=== PATIENT | female | born 1995 | race Two or more races ===

== ENCOUNTER 2021-07-30 09:42 | Observation (INO) | payer BC, MEDICAID ==
[2021-07-30] MEDS ORDERED: PREN-96 PO (11:37)
== END 2021-07-30 11:45 | disposition home or self-care (01) ==
LOC: LDRP 09:42
PROVIDERS: ADMIT Obstetrics & Gynecology; ATTEND Obstetrics & Gynecology
DX: O24.419 Gestational diabetes mellitus in pregnancy, unspecified control (principal); Z3A.31 31 weeks gestation of pregnancy
CPT/HCPCS: 59025; 81002; 82948; 82962; 94760; G0378; G0379

== ENCOUNTER 2021-08-06 08:15 | Observation (INO) | payer BC, MEDICAID ==
[~2021-08-06 08:15] MED LIST: PREN-96 PO
== END 2021-08-06 09:32 | disposition home or self-care (01) ==
LOC: LDRP 08:15
PROVIDERS: ADMIT Obstetrics & Gynecology; ATTEND Obstetrics & Gynecology
DX: O24.419 Gestational diabetes mellitus in pregnancy, unspecified control (principal); Z3A.32 32 weeks gestation of pregnancy; Z79.899 Other long term (current) drug therapy; Z98.890 Other specified postprocedural states
CPT/HCPCS: 59025; 76818; 81002; 82948; 82962; G0378; G0379

== ENCOUNTER 2021-08-12 07:22 | Observation (INO) | payer BC, MEDICAID | END 2021-08-12 14:20 | disposition home or self-care (01) | LOC: LDRP 13:15 | PROVIDERS: ADMIT Obstetrics & Gynecology; ATTEND Obstetrics & Gynecology | DX: O24.419 Gestational diabetes mellitus in pregnancy, unspecified control (principal); Z3A.33 33 weeks gestation of pregnancy | CPT/HCPCS: 59025; 76818; 81002; 82962; G0378; G0379 ==

== ENCOUNTER 2021-08-26 07:51 | Observation (INO) | payer BC, MEDICAID ==
[2021-08-26 12:36] LABS: Urine Bacteria FEW /hpf (None Seen); Urine Blood TRACE /uL (Negative); Urine Hyaline Cast FEW /lpf (0 - 2); Urine Mucus FEW (None Seen); Urine Specific Gravity 1.025 (1.001-1.035); Urine WBC 48 /hpf (0 - 5)
[2021-08-26 12:42] LABS: Basophils # (auto) 0 10 ^3/uL (0-0.2); Basophils % (auto) 0.3 % (0.0-2.0); Eosinophils # (auto) 0.1 10 ^3/uL (0-0.8); Eosinophils % (auto) 1.3 % (0.0-7.0); Hematocrit 34.9 % (36.0-46.0); Hemoglobin 11.6 g/dL (12.2-16.2); Lymphocytes # (auto) 1.4 10 ^3/uL (0.4-5.4); Lymphocytes % (auto) 19.3 % (10.0-50.0); Mean Corpuscular Hemoglobin 28.6 pg (28.0-32.0); Mean Corpuscular Hgb Conc. 33.1 g/dL (32.0-36.0); Mean Corpuscular Volume 86.4 fL (80.0-100.0); Monocytes # (auto) 0.7 10 ^3/uL (0-1.3); Monocytes % (auto) 8.8 % (0.0-12.0); Neutrophils # (auto) 5.2 10 ^3/uL (1.6-8.6); Neutrophils % (auto) 70.3 % (37.0-80.0); Nucleated Red Blood Cells % 0.1 %; Red Blood Cells 4.04 10^6/uL (4.0-5.20); Red Cell Distribution Width 13.8 % (11.8-14.3); White Blood Cell 7.5 10^3/uL (4.4-10.8)
[2021-08-26 12:45] LABS: Albumin 2.6 g/dL (3.4-5.0); INR 0.95 (0.9-1.15); Partial Thromboplastin Time 28.6 sec (23.6-33.0); Potassium 3.8 mmol/L (3.5-5.1); Uric Acid 2.8 mg/dL (2.6-6.0)
[2021-08-26 12:48] LABS: BUN/Creatinine Ratio 10.2; Bilirubin, Total 0.3 mg/dL (0.2-1.0); Total Protein 6.7 g/dL (6.4-8.2)
[2021-08-26 14:42] LABS: Protein, Urine 39.2 mg/dL (0.0-11.9)
[2021-08-27 07:07] LABS: RPR Non Reactive (Non Reactive)
== END 2021-08-26 14:00 | disposition home or self-care (01) ==
LOC: LDRP 10:29
PROVIDERS: ADMIT Obstetrics & Gynecology; ATTEND Obstetrics & Gynecology
DX: O24.419 Gestational diabetes mellitus in pregnancy, unspecified control (principal); O13.3 Gestational [pregnancy-induced] hypertension without significant proteinuria, third trimester; Z3A.35 35 weeks gestation of pregnancy; Z98.891 History of uterine scar from previous surgery
CPT/HCPCS: 36415; 59025; 76818; 80053; 81001; 81002; 82570; 84156; 84550; 85025; 85610; 85730; 86592; 94760; G0378; G0379

== ENCOUNTER 2021-09-02 08:27 | Observation (INO) | payer BC, MEDICAID ==
[2021-09-02] MEDS ORDERED: METF-370 PO (13:36)
== END 2021-09-02 13:45 | disposition home or self-care (01) ==
LOC: LDRP 11:38
PROVIDERS: ADMIT Obstetrics & Gynecology; ATTEND Obstetrics & Gynecology
DX: O24.419 Gestational diabetes mellitus in pregnancy, unspecified control (principal); Z3A.36 36 weeks gestation of pregnancy
CPT/HCPCS: 59025; 76818; 81002; 82948; 82962; G0378; G0379

== ENCOUNTER 2021-09-09 10:15 | Observation (INO) | payer BC, MEDICAID ==
[~2021-09-09 10:15] MED LIST changes: +METF-370 PO
[2021-09-09 12:34] LABS: Basophils # (auto) 0 10 ^3/uL (0-0.2); Basophils % (auto) 0.5 % (0.0-2.0); Eosinophils # (auto) 0 10 ^3/uL (0-0.8); Eosinophils % (auto) 0.1 % (0.0-7.0); Hematocrit 36.1 % (36.0-46.0); Lymphocytes # (auto) 0.9 10 ^3/uL (0.4-5.4); Lymphocytes % (auto) 12.9 % (10.0-50.0); Mean Corpuscular Hemoglobin 28.1 pg (28.0-32.0); Mean Corpuscular Hgb Conc. 33.3 g/dL (32.0-36.0); Mean Corpuscular Volume 84.3 fL (80.0-100.0); Monocytes # (auto) 0.5 10 ^3/uL (0-1.3); Monocytes % (auto) 7.6 % (0.0-12.0); Neutrophils # (auto) 5.3 10 ^3/uL (1.6-8.6); Neutrophils % (auto) 78.9 % (37.0-80.0); Nucleated Red Blood Cells % 0.1 %; Red Blood Cells 4.28 10^6/uL (4.0-5.20); Red Cell Distribution Width 13.8 % (11.8-14.3); White Blood Cell 6.8 10^3/uL (4.4-10.8)
[2021-09-09 12:37] LABS: Urine Bacteria FEW /hpf (None Seen); Urine Blood Negative /uL (Negative); Urine Mucus FEW (None Seen); Urine Specific Gravity 1.029 (1.001-1.035); Urine WBC 55 /hpf (0 - 5)
[2021-09-09 12:39] LABS: Protein, Urine 104.8 mg/dL (0.0-11.9)
[2021-09-09 12:46] LABS: INR 0.99 (0.9-1.15); Partial Thromboplastin Time 29.4 sec (23.6-33.0)
[2021-09-09 12:51] LABS: Albumin 2.7 g/dL (3.4-5.0); Calcium 8.1 mg/dL (8.5-10.1); Potassium 3.5 mmol/L (3.5-5.1); Uric Acid 3.4 mg/dL (2.6-6.0)
[2021-09-09 12:54] LABS: Bilirubin, Total 0.4 mg/dL (0.2-1.0); Total Protein 6.5 g/dL (6.4-8.2)
== END 2021-09-09 12:52 | disposition home or self-care (01) ==
LOC: LDRP 10:15
PROVIDERS: ADMIT Obstetrics & Gynecology; ATTEND Obstetrics & Gynecology
DX: O24.415 Gestational diabetes mellitus in pregnancy, controlled by oral hypoglycemic drugs (principal); Z3A.37 37 weeks gestation of pregnancy; Z79.899 Other long term (current) drug therapy
CPT/HCPCS: 36415; 59025; 76818; 80053; 81001; 81002; 82570; 82948; 82962; 84156; 84550; 85025; 85610; 85730; 94760; G0378

== ENCOUNTER 2021-09-11 18:49 | Observation (INO) | payer BC, MEDICAID ==
[~2021-09-11] VITALS: Ht 152.4 cm; Wt 91.6 kg
[2021-09-11 20:11] LABS: Basophils # (auto) 0 10 ^3/uL (0-0.2); Basophils % (auto) 0.1 % (0.0-2.0); Eosinophils # (auto) 0.1 10 ^3/uL (0-0.8); Eosinophils % (auto) 1.2 % (0.0-7.0); Hematocrit 32.8 % (36.0-46.0); Lymphocytes # (auto) 1.7 10 ^3/uL (0.4-5.4); Lymphocytes % (auto) 24.9 % (10.0-50.0); Mean Corpuscular Hemoglobin 28.1 pg (28.0-32.0); Mean Corpuscular Hgb Conc. 33.6 g/dL (32.0-36.0); Mean Corpuscular Volume 83.6 fL (80.0-100.0); Monocytes # (auto) 0.6 10 ^3/uL (0-1.3); Monocytes % (auto) 9.5 % (0.0-12.0); Neutrophils # (auto) 4.3 10 ^3/uL (1.6-8.6); Neutrophils % (auto) 64.3 % (37.0-80.0); Nucleated Red Blood Cells % 0.1 %; Red Blood Cells 3.93 10^6/uL (4.0-5.20); Red Cell Distribution Width 13.7 % (11.8-14.3); White Blood Cell 6.7 10^3/uL (4.4-10.8)
[2021-09-11 20:31] LABS: INR 0.96 (0.9-1.15); Partial Thromboplastin Time 27.3 sec (23.6-33.0)
[2021-09-11 20:34] LABS: Albumin 2.5 g/dL (3.4-5.0); Calcium 7.8 mg/dL (8.5-10.1); Potassium 3.3 mmol/L (3.5-5.1)
[2021-09-11 20:38] LABS: BUN/Creatinine Ratio 13.5; Bilirubin, Total 0.3 mg/dL (0.2-1.0)
[2021-09-11 21:16] LABS: Urine Bacteria FEW /hpf (None Seen); Urine Blood Negative /uL (Negative); Urine Specific Gravity 1.016 (1.001-1.035); Urine WBC 2 /hpf (0 - 5)
[2021-09-11 21:27] LABS: Alcohol, Urine < 3.0 mg/dL (0-10); Amphetamine Screen, Urine NEGATIVE (NEGATIVE); Barbiturate Scree,Urine NEGATIVE (NEGATIVE); Benzodiazephine Screen, Urine NEGATIVE (NEGATIVE); Cannabinoid Screen, Urine NEGATIVE (NEGATIVE); Cocaine Screen, Urine NEGATIVE (NEGATIVE); Creatinine, Urine 106 mg/dL (30.0-125.0); Opiate Scree,Urine NEGATIVE (NEGATIVE); Phencyclidine Screen, Urine NEGATIVE (NEGATIVE); Protein, Urine 22.6 mg/dL (0.0-11.9)
== END 2021-09-11 22:01 | disposition home or self-care (01) ==
LOC: LDRP 18:49
PROVIDERS: ADMIT Obstetrics & Gynecology; ATTEND Obstetrics & Gynecology
DX: O13.3 Gestational [pregnancy-induced] hypertension without significant proteinuria, third trimester (principal); O24.419 Gestational diabetes mellitus in pregnancy, unspecified control; O99.891 Other specified diseases and conditions complicating pregnancy; M54.9 Dorsalgia, unspecified; Z3A.37 37 weeks gestation of pregnancy; Z98.891 History of uterine scar from previous surgery; Z79.899 Other long term (current) drug therapy
CPT/HCPCS: 36415; 59025; 76818; 80053; 80307; 81001; 81002; 82570; 82962; 83615; 84156; 84550; 85025; 85362; 85379; 85384; 85610; 85730; 94760; G0378

== ENCOUNTER 2021-09-16 08:27 | Observation (INO) | payer BC, MEDICAID ==
[2021-09-16 10:13] LABS: Basophils # (auto) 0 10 ^3/uL (0-0.2); Basophils % (auto) 0.2 % (0.0-2.0); Eosinophils # (auto) 0.1 10 ^3/uL (0-0.8); Eosinophils % (auto) 0.9 % (0.0-7.0); Hematocrit 34.1 % (36.0-46.0); Hemoglobin 11.4 g/dL (12.2-16.2); Lymphocytes % (auto) 26.3 % (10.0-50.0); Mean Corpuscular Hemoglobin 27.8 pg (28.0-32.0); Mean Corpuscular Hgb Conc. 33.3 g/dL (32.0-36.0); Mean Corpuscular Volume 83.7 fL (80.0-100.0); Monocytes # (auto) 0.5 10 ^3/uL (0-1.3); Neutrophils # (auto) 5.2 10 ^3/uL (1.6-8.6); Neutrophils % (auto) 66.6 % (37.0-80.0); Nucleated Red Blood Cells % 0.1 %; Red Blood Cells 4.08 10^6/uL (4.0-5.20); Red Cell Distribution Width 13.6 % (11.8-14.3); White Blood Cell 7.8 10^3/uL (4.4-10.8)
[2021-09-16 10:32] LABS: INR 0.94 (0.9-1.15); Partial Thromboplastin Time 27.4 sec (23.6-33.0)
[2021-09-16 11:03] LABS: Urine Bacteria FEW /hpf (None Seen); Urine Blood Negative /uL (Negative); Urine WBC 31 /hpf (0 - 5)
[2021-09-16 11:23] LABS: Albumin 2.7 g/dL (3.4-5.0); BUN/Creatinine Ratio 10.2; Bilirubin, Total 0.3 mg/dL (0.2-1.0); Calcium 8.1 mg/dL (8.5-10.1); Potassium 3.7 mmol/L (3.5-5.1); Total Protein 6.5 g/dL (6.4-8.2)
[2021-09-16 11:40] LABS: Alcohol, Urine < 3.0 mg/dL (0-10); Amphetamine Screen, Urine NEGATIVE (NEGATIVE); Barbiturate Scree,Urine NEGATIVE (NEGATIVE); Benzodiazephine Screen, Urine NEGATIVE (NEGATIVE); Cannabinoid Screen, Urine NEGATIVE (NEGATIVE); Cocaine Screen, Urine NEGATIVE (NEGATIVE); Opiate Scree,Urine NEGATIVE (NEGATIVE); Phencyclidine Screen, Urine NEGATIVE (NEGATIVE)
[2021-09-16 11:44] LABS: Protein, Urine 15.4 mg/dL (0.0-11.9)
[2021-09-17 06:06] LABS: RPR Non Reactive (Non Reactive)
== END 2021-09-16 12:23 | disposition home or self-care (01) ==
LOC: LDRP 09:26
PROVIDERS: ADMIT Obstetrics & Gynecology; ATTEND Obstetrics & Gynecology
DX: O24.419 Gestational diabetes mellitus in pregnancy, unspecified control (principal); O62.9 Abnormality of forces of labor, unspecified; O13.3 Gestational [pregnancy-induced] hypertension without significant proteinuria, third trimester; Z20.822 Contact with and (suspected) exposure to COVID-19; Z79.899 Other long term (current) drug therapy; Z3A.38 38 weeks gestation of pregnancy
CPT/HCPCS: 36415; 59025; 76818; 80053; 80307; 81001; 81002; 82570; 82948; 82962; 84156; 84550; 85025; 85362; 85379; 85610; 85730; 86592; 86850; 86900; 86901; 87426; 94760; G0378; U0003

== ENCOUNTER 2021-09-20 04:49 | Inpatient (IN) | payer BC, MEDICAID ==
[2021-09-19 10:17] LABS: Albumin 2.7 g/dL (3.4-5.0); Calcium 8.4 mg/dL (8.5-10.1)
[2021-09-19 10:20] LABS: BUN/Creatinine Ratio 15.4; Bilirubin, Total 0.3 mg/dL (0.2-1.0); Total Protein 6.6 g/dL (6.4-8.2)
[2021-09-19 10:30] LABS: Basophils # (auto) 0 10 ^3/uL (0-0.2); Basophils % (auto) 0.3 % (0.0-2.0); Eosinophils # (auto) 0.1 10 ^3/uL (0-0.8); Eosinophils % (auto) 0.9 % (0.0-7.0); Hematocrit 35.2 % (36.0-46.0); Hemoglobin 11.5 g/dL (12.2-16.2); Lymphocytes # (auto) 2.1 10 ^3/uL (0.4-5.4); Lymphocytes % (auto) 19.3 % (10.0-50.0); Mean Corpuscular Hemoglobin 27.9 pg (28.0-32.0); Mean Corpuscular Hgb Conc. 32.7 g/dL (32.0-36.0); Mean Corpuscular Volume 85.4 fL (80.0-100.0); Monocytes # (auto) 0.7 10 ^3/uL (0-1.3); Monocytes % (auto) 6.9 % (0.0-12.0); Neutrophils # (auto) 7.8 10 ^3/uL (1.6-8.6); Neutrophils % (auto) 72.6 % (37.0-80.0); Red Blood Cells 4.12 10^6/uL (4.0-5.20); Red Cell Distribution Width 14.1 % (11.8-14.3); White Blood Cell 10.8 10^3/uL (4.4-10.8)
[2021-09-19 10:50] LABS: INR 0.92 (0.9-1.15); Partial Thromboplastin Time 25.6 sec (23.6-33.0)
[~2021-09-20] VITALS: Ht 152.4 cm; Wt 91.6 kg
[2021-09-20] VITALS (16 sets, daily range): BP systolic 95–141; BP diastolic 51–71
[2021-09-20] MEDS ORDERED: LACTATED RINGER'S 1,000 ML IV SCH (05:15)
[2021-09-20] MEDS ORDERED: LACTATED RINGER'S 1,000 ML IV ONE (05:15)
[2021-09-20] MEDS ORDERED: ceFAZolin 1GM/50ML 50 ML IV ONE (05:15)
[2021-09-20] MEDS ORDERED: METOCLOPRAMIDE HCL 5MG/ml INJ 2ml VIAL IV ONE (05:15)
[2021-09-20] MEDS ORDERED: SODIUM CITR/CITRIC ACID ORAL SOLN 30 ML PO ONE (05:15)
[2021-09-20] MEDS ORDERED: TETRACAINE 1% INJ 2 ML VIAL IJ ONE (07:13)
[2021-09-20] MEDS ORDERED: fentaNYL CITRATE 100 MCG/2 ML VL ONE (07:47)
[2021-09-20] MEDS ORDERED: ONDANSETRON HCL 4 MG/2 ML VIAL ONE (07:48)
[2021-09-20] MEDS ORDERED: GLYCOPYRROLATE 0.2 MG/ML 1ML VIAL ONE (07:48)
[2021-09-20] MEDS ORDERED: ePHEDrine SULFATE 50 MG/ML AMP ONE (07:48)
[2021-09-20] MEDS ORDERED: PHENYLEPHRINE HCL 10 MG/ML VL ONE (07:48)
[2021-09-20] MEDS ORDERED: oxyTOCIN 10 UNIT/ML 10ML VIAL ONE (07:48)
[2021-09-20] MEDS ORDERED: MORPHINE SULF PF 2 MG/2 ML SYRG ONE (07:48)
[2021-09-20] MEDS ORDERED: BUPIVACAINE/DEXTROSE MPF 0.75% 2 ML AMP IT ONE (07:48)
[2021-09-20] MEDS ORDERED: SUCCINYLCHOLINE CHLORIDE 20 MG/ML 10ML VIAL IV ONE (07:49)
[2021-09-20] MEDS ORDERED: ONDANSETRON HCL 4 MG/2 ML VIAL IV PRN ×4 (09:15→12:00)
[2021-09-20] MEDS ORDERED: ceFAZolin 1GM/50ML 50 ML IV SCH (09:15)
[2021-09-20] MEDS ORDERED: LACT. RINGERS/OXYTOCIN 20UNITS 1,000 ML IV ONE (09:15)
[2021-09-20] MEDS ORDERED: ACETAMINOPHEN IV 1000 MG/100ML (10MG/ML) IV PRN (10:00)
[2021-09-20] MEDS ORDERED: GUM (CHEWING) 1 GUM CHEW CHEW ONE (10:00)
[2021-09-20] MEDS ORDERED: IBUP800T27 PO (11:40)
[2021-09-20] MEDS ORDERED: DOCU-94 PO (11:40)
[2021-09-20] MEDS ORDERED: HYDR-4902 PO (11:40)
[2021-09-20] MEDS ORDERED: DexAMETHasone SOD PHOS 10MG/1ML VIAL INJ IV PRN (12:00)
[2021-09-20] MEDS ORDERED: KETOROLAC TROMETH 30 MG/ML 1ML VIAL IV PRN ×2 (12:00→16:15)
[2021-09-20] MEDS ORDERED: NALOXONE HCL 0.4 MG/ML VIAL IV PRN (12:00)
[2021-09-20] MEDS ORDERED: diphenhdrAMINE HCL 50 MG/1 ML VL IV PRN (12:00)
[2021-09-20] MEDS ORDERED: KETOROLAC TROMETH 30 MG/ML 1ML VIAL IV ONE (12:00)
[2021-09-20] MEDS: ceFAZolin 1GM/50ML 50 ML IV SCH ×2 (14:53→23:06)
[2021-09-20] MEDS: LACTATED RINGER'S 1,000 ML IV SCH ×2 (18:00→23:05)
[2021-09-20 21:39] LABS: Basophils # (auto) 0 10 ^3/uL (0-0.2); Basophils % (auto) 0.2 % (0.0-2.0); Eosinophils # (auto) 0 10 ^3/uL (0-0.8); Eosinophils % (auto) 0.4 % (0.0-7.0); Hematocrit 33.7 % (36.0-46.0); Hemoglobin 11.3 g/dL (12.2-16.2); Lymphocytes # (auto) 1.7 10 ^3/uL (0.4-5.4); Lymphocytes % (auto) 16.7 % (10.0-50.0); Mean Corpuscular Hemoglobin 28.1 pg (28.0-32.0); Mean Corpuscular Hgb Conc. 33.4 g/dL (32.0-36.0); Mean Corpuscular Volume 84.1 fL (80.0-100.0); Monocytes % (auto) 9.9 % (0.0-12.0); Neutrophils # (auto) 7.4 10 ^3/uL (1.6-8.6); Neutrophils % (auto) 72.8 % (37.0-80.0); Red Blood Cells 4.01 10^6/uL (4.0-5.20); White Blood Cell 10.2 10^3/uL (4.4-10.8)
[2021-09-20] MEDS: FAMOTIDINE (10MG/ML) 2ML VL IV SCH (22:00)
[2021-09-21] VITALS (15 sets, daily range): BP systolic 88–113; BP diastolic 44–75
[2021-09-21 06:10] LABS: Basophils # (auto) 0 10 ^3/uL (0-0.2); Basophils % (auto) 0.3 % (0.0-2.0); Eosinophils # (auto) 0.1 10 ^3/uL (0-0.8); Eosinophils % (auto) 0.8 % (0.0-7.0); Hematocrit 32.6 % (36.0-46.0); Hemoglobin 10.9 g/dL (12.2-16.2); Lymphocytes # (auto) 1.5 10 ^3/uL (0.4-5.4); Lymphocytes % (auto) 16.3 % (10.0-50.0); Mean Corpuscular Hemoglobin 28.1 pg (28.0-32.0); Mean Corpuscular Hgb Conc. 33.5 g/dL (32.0-36.0); Mean Corpuscular Volume 83.9 fL (80.0-100.0); Monocytes % (auto) 10.5 % (0.0-12.0); Neutrophils # (auto) 6.7 10 ^3/uL (1.6-8.6); Neutrophils % (auto) 72.1 % (37.0-80.0); Nucleated Red Blood Cells % 0.1 %; Red Blood Cells 3.88 10^6/uL (4.0-5.20); White Blood Cell 9.3 10^3/uL (4.4-10.8)
[2021-09-21] MEDS: ceFAZolin 1GM/50ML 50 ML IV SCH (07:37)
[2021-09-21] MEDS ORDERED: BISACODYL 10 MG RECT SUPP PR PRN (10:30)
[2021-09-21] MEDS ORDERED: HYDROcodone-ACET 5/325MG TAB PO PRN (10:30)
[2021-09-21] MEDS: SIMETHICONE 80 MG CHEWABLE TABLET PO SCH ×3 (12:35→22:24)
[2021-09-21] MEDS: HYDROcodone-ACET 5/325MG TAB PO PRN ×2 (12:37→22:26)
[2021-09-21] MEDS: IBUPROFEN 800 MG TAB PO PRN (16:26)
[2021-09-21] MEDS: FAMOTIDINE (10MG/ML) 2ML VL IV SCH (22:00)
[2021-09-21] MEDS: DOCUSATE SOD 100 MG CAP PO SCH (22:25)
[2021-09-22 03:00] VITALS: BP 108/67
[2021-09-22] MEDS: SIMETHICONE 80 MG CHEWABLE TABLET PO SCH ×2 (05:33→11:20)
[2021-09-22] MEDS: HYDROcodone-ACET 5/325MG TAB PO PRN (05:34)
[2021-09-22 07:10] VITALS: BP 108/58
[2021-09-22] MEDS ORDERED: DOCUSATE CALCIUM 240 MG CAP PO SCH (10:00)
[2021-09-22 11:16] VITALS: BP 104/65
[2021-09-22] MEDS: IBUPROFEN 800 MG TAB PO PRN (11:20)
[2021-09-22] MEDS: DOCUSATE SOD 100 MG CAP PO SCH (11:21)
[2021-09-22] MEDS ORDERED: MEASLES, MUMPS & RUBELLA VAC(MMRII) 0.5ML SC ONE (13:00)
== END 2021-09-22 14:16 | disposition home or self-care (01) | DRG 786 ==
LOC: LDRP 04:49
PROVIDERS: ADMIT Obstetrics & Gynecology; ATTEND Obstetrics & Gynecology
PROC: 10D00Z1 Extraction of Products of Conception, Low, Open Approach (ICD-10-PCS; principal; 2021-09-20 08:04)
DX: O24.429 Gestational diabetes mellitus in childbirth, unspecified control (principal); U07.1 COVID-19; O98.52 Other viral diseases complicating childbirth; O34.211 Maternal care for low transverse scar from previous cesarean delivery; Z3A.39 39 weeks gestation of pregnancy; Z37.0 Single live birth
CPT/HCPCS: 36415; 59025; 80053; 82947; 82948; 82962; 85025; 85610; 85730; 86850; 86900; 86901; 94760; 94762; 96360; 96361; 96365; 96366; G0378; J0131; J0330; J0690; J1885; J2405; J2590

== ENCOUNTER 2024-01-29 11:13 | Observation (INO) | payer MEDICAID ==
[~2024-01-29 11:13] MED LIST changes: +DOCU-94 PO; +HYDR-4902 PO; +IBUP-1456 PO
== END 2024-01-29 12:44 | disposition home or self-care (01) ==
LOC: LDRP 11:13
PROVIDERS: ADMIT Obstetrics & Gynecology; ATTEND Obstetrics & Gynecology
DX: O24.419 Gestational diabetes mellitus in pregnancy, unspecified control (principal); Z3A.36 36 weeks gestation of pregnancy
CPT/HCPCS: 59025; 76818; 81002; 82948; 82962; 94760; G0378

== ENCOUNTER 2024-02-03 09:19 | Observation (INO) | payer MEDICAID | END 2024-02-03 11:42 | disposition home or self-care (01) | LOC: LDRP 10:28 → UNDOADMOB 10:28 → LDRP 10:32 → UNDODISOB 11:42 | PROVIDERS: ADMIT Obstetrics & Gynecology; ATTEND Obstetrics & Gynecology | DX: O24.419 Gestational diabetes mellitus in pregnancy, unspecified control (principal); Z3A.36 36 weeks gestation of pregnancy | CPT/HCPCS: 59025; 76818; 81002; 82962; 94760; G0378 ==

== ENCOUNTER 2024-02-11 10:12 | Observation (INO) | payer MEDICAID | END 2024-02-11 11:36 | disposition home or self-care (01) | LOC: UNDOADMOB 10:12 → LDRP 10:12 → UNDODISOB 11:36 | PROVIDERS: ADMIT Obstetrics & Gynecology; ATTEND Obstetrics & Gynecology | DX: O24.419 Gestational diabetes mellitus in pregnancy, unspecified control (principal); O62.9 Abnormality of forces of labor, unspecified; Z3A.37 37 weeks gestation of pregnancy | CPT/HCPCS: 59025; 76818; 81002; 82948; 94760; G0378 ==

== ENCOUNTER 2024-02-14 08:40 | Observation (INO) | payer MEDICAID | END 2024-02-14 18:12 | disposition home or self-care (01) | LOC: LDRP 17:07 | PROVIDERS: ADMIT Obstetrics & Gynecology; ATTEND Obstetrics & Gynecology | DX: O24.419 Gestational diabetes mellitus in pregnancy, unspecified control (principal); Z3A.38 38 weeks gestation of pregnancy | CPT/HCPCS: 76818; 82962; G0378; 59025; 81002; 82948; 94760 ==

== ENCOUNTER 2024-02-18 08:48 | Observation (INO) | payer MEDICAID ==
[~2024-02-18 08:48] MED LIST changes: -METF-370 PO
[2024-02-18 10:12] LABS: Basophils # (auto) 0 10 ^3/uL (0-0.2); Basophils % (auto) 0.2 % (0.0-2.0); Eosinophils # (auto) 0.1 10 ^3/uL (0-0.8); Mean Corpuscular Volume 78.6 fL (80.0-100.0); Monocytes # (auto) 0.5 10 ^3/uL (0-1.3); Nucleated Red Blood Cells % 0.1 %; Red Cell Distribution Width 15.9 % (11.8-14.3)
[2024-02-18 10:13] LABS: Eosinophils % (auto) 0.9 % (0.0-7.0); Hematocrit 34.3 % (36.0-46.0); Lymphocytes % (auto) 22.2 % (10.0-50.0); Mean Corpuscular Hemoglobin 25.2 pg (28.0-32.0); Monocytes % (auto) 5.8 % (0.0-12.0); Neutrophils # (auto) 6.4 10 ^3/uL (1.6-8.6); Neutrophils % (auto) 70.9 % (37.0-80.0); Red Blood Cells 4.36 10^6/uL (4.0-5.20)
[2024-02-18 10:24] LABS: Albumin 4.1 g/dL (3.2-4.8); Alkaline Phosphatase 134 U/L (46-116); Anion Gap 8 (5-15); Aspartate Aminotransferase < 8 U/L (13-40); BUN/Creatinine Ratio 10.6 (10.0-20.0); Blood Urea Nitrogen 5 mg/dL (9-23); Calcium 8.7 mg/dL (8.5-10.1); Carbon Dioxide 20 mmol/L (20-30); Chloride 108 mmol/L (98-107); Glucose 92 mg/dL (74-106); Potassium 3.5 mmol/L (3.5-5.1); Sodium 136 mmol/L (136-145)
[2024-02-18 10:25] LABS: Alanine Aminotransferase < 9 U/L (7-40); Bilirubin, Total 0.3 mg/dL (0.2-1.0); Total Protein 6.6 g/dL (5.7-8.2)
[2024-02-18 10:27] LABS: INR 0.93 (0.9-1.15); Partial Thromboplastin Time 26.7 SEC (24.5-34.5); Prothrombin Time 9.9 sec (9.3-11.8)
[2024-02-18 10:37] LABS: Urine Bacteria FEW /hpf (None Seen); Urine Blood Negative /uL (Negative); Urine Budding Yeast OCCASIONAL /hpf (None Seen); Urine Color Yellow (Yellow); Urine Mucus FEW (None Seen); Urine Protein, UAD 1+ (Negative); Urine Specific Gravity 1.026 (1.001-1.035); Urine Urobilinogen Normal (Negative); Urine WBC 6 /hpf (0 - 5)
[2024-02-18 10:38] LABS: Urine Clarity Hazy (Clear)
[2024-02-18 10:45] LABS: Amphetamine Screen, Urine Neg (NEGATIVE); Barbiturate Scree,Urine Neg (NEGATIVE); Benzodiazephine Screen, Urine Neg (NEGATIVE); Cocaine Screen, Urine Neg (NEGATIVE); Opiate Scree,Urine Neg (NEGATIVE)
[2024-02-18 10:46] LABS: Cannabinoid Screen, Urine Neg (NEGATIVE); Phencyclidine Screen, Urine Neg (NEGATIVE)
[2024-02-19 08:06] LABS: RPR Non Reactive (Non Reactive)
[2024-02-21 19:06] LABS: Treponema pallidum Ab (FTA-Ab) Non Reactive (Non Reactive)
== END 2024-02-18 11:00 | disposition home or self-care (01) ==
LOC: UNDOADMOB 08:48 → LDRP 08:48
PROVIDERS: ADMIT Obstetrics & Gynecology; ATTEND Obstetrics & Gynecology
DX: O36.8130 Decreased fetal movements, third trimester, not applicable or unspecified (principal); O62.9 Abnormality of forces of labor, unspecified; Z3A.38 38 weeks gestation of pregnancy
CPT/HCPCS: 36415; 76818; 80053; 80307; 81001; 85025; 85610; 85730; 86592; 86850; 86900; 86901; G0378

== ENCOUNTER 2024-02-20 04:08 | Inpatient (IN) | payer MEDICAID ==
[2024-02-20] VITALS (16 sets, daily range): BP systolic 100–116; BP diastolic 63–72; PULSE 60–101; RESP 16–20; TEMP 97.5–98.7; O2SAT 96–100
[~2024-02-20] VITALS: Ht 152.4 cm; Wt 98.0 kg
[2024-02-20] MEDS: LACTATED RINGER'S 1,000 ML IV ONE (05:19)
[2024-02-20] MEDS: LACTATED RINGER'S 1,000 ML IV SCH (05:44)
[2024-02-20] MEDS: ceFAZolin 1GM/50ML 50 ML IV ONE ×2 (06:52→09:51)
[2024-02-20] MEDS ORDERED: MORPHINE SULF PF 5 MG/10 ML VIAL ONE (06:56)
[2024-02-20] MEDS ORDERED: oxyTOCIN 10 UNIT/ML 10ML VIAL ONE (06:56)
[2024-02-20] MEDS ORDERED: ePHEDrine SULFATE 50 MG/ML AMP ONE (07:22)
[2024-02-20] MEDS ORDERED: PHENYLEPHRINE HCL 10 MG/ML VL ONE (07:29)
[2024-02-20] MEDS ORDERED: HYDROmorphone HCL 2 MG/ML VL/or syr IV PRN ×2 (08:30)
[2024-02-20] MEDS ORDERED: KETOROLAC TROMETH 30 MG/ML 1ML VIAL IV PRN (08:30)
[2024-02-20] MEDS ORDERED: MEPERIDINE HCL (25 MG/ML) 1ML VIAL IV PRN (08:30)
[2024-02-20] MEDS ORDERED: NALOXONE HCL 0.4 MG/ML VIAL IV PRN (08:30)
[2024-02-20] MEDS ORDERED: ONDANSETRON HCL 4 MG/2 ML VIAL IV PRN ×2 (08:30→10:00)
[2024-02-20] MEDS ORDERED: DexAMETHasone SOD PHOS 10MG/1ML VIAL INJ IV PRN (08:30)
[2024-02-20] MEDS ORDERED: ACETAMINOPHEN IV 1000 MG/100ML (10MG/ML) IV PRN (08:30)
[2024-02-20] MEDS: diphenhdrAMINE HCL 50 MG/1 ML VL IV PRN (09:18)
[2024-02-20] MEDS: GELATIN 1 SPONGE SIZE 100 TOP ONE ×2 (09:51→09:52)
[2024-02-20] MEDS: BUPIVACAINE HCL 0.25% P/F 10 ML VIAL ONE (09:51)
[2024-02-20] MEDS: ONDANSETRON HCL 4 MG/2 ML VIAL IV ONE (09:52)
[2024-02-20] MEDS: NALBUPHINE HCL 10 MG/1ml INJECTION SUBCUT ONE (09:52)
[2024-02-20] MEDS ORDERED: MORPHINE SULFATE 4 MG/ML SYR/VIAL IV PRN (10:00)
[2024-02-20] MEDS ORDERED: ePHEDrine SULFATE 50 MG/ML AMP IV PRN (10:00)
[2024-02-20] MEDS: ACETAMINOPHEN IV 1000 MG/100ML (10MG/ML) IV PRN (10:09)
[2024-02-20] MEDS: ceFAZolin 1GM/50ML 50 ML IV SCH (14:55)
[2024-02-21] VITALS (11 sets, daily range): BP systolic 97–120; BP diastolic 54–76; PULSE 74–102; RESP 16–20; TEMP 97.8–99; O2SAT 95–99
[2024-02-21] MEDS ORDERED: BISACODYL 10 MG RECT SUPP PR PRN (08:00)
[2024-02-21] MEDS ORDERED: IBUP-1455 PO (08:02)
[2024-02-21] MEDS ORDERED: HYDR-4902 PO (08:02)
[2024-02-21] MEDS: HYDROcodone-ACET 5/325MG TAB PO PRN (09:22)
[2024-02-21] MEDS: DOCUSATE SOD 100 MG CAP PO SCH (10:18)
[2024-02-21] MEDS: DOCUSATE CALCIUM 240 MG CAP PO SCH (10:18)
[2024-02-21] MEDS: SIMETHICONE 80 MG CHEWABLE TABLET PO SCH (11:25)
[2024-02-21] MEDS: IBUPROFEN 800 MG TAB PO PRN (13:01)
[2024-02-22 03:00] VITALS: BP 104/68; PULSE 93; RESP 16; TEMP 98; O2SAT 97
[2024-02-22] MEDS: HYDROcodone-ACET 5/325MG TAB PO PRN (05:34)
[2024-02-22 07:21] LABS: Basophils # (auto) 0 10 ^3/uL (0-0.2); Basophils % (auto) 0.2 % (0.0-2.0); Eosinophils # (auto) 0.1 10 ^3/uL (0-0.8); Monocytes # (auto) 0.6 10 ^3/uL (0-1.3)
[2024-02-22 07:23] LABS: Eosinophils % (auto) 1.2 % (0.0-7.0); Hematocrit 29.1 % (36.0-46.0); Hemoglobin 9.6 g/dL (12.2-16.2); Lymphocytes # (auto) 1.4 10 ^3/uL (0.4-5.4); Lymphocytes % (auto) 12.7 % (10.0-50.0); Mean Corpuscular Hemoglobin 25.8 pg (28.0-32.0); Mean Corpuscular Hgb Conc. 32.9 g/dL (32.0-36.0); Mean Corpuscular Volume 78.2 fL (80.0-100.0); Monocytes % (auto) 5.3 % (0.0-12.0); Neutrophils # (auto) 8.8 10 ^3/uL (1.6-8.6); Neutrophils % (auto) 80.6 % (37.0-80.0); Red Blood Cells 3.72 10^6/uL (4.0-5.20); Red Cell Distribution Width 15.8 % (11.8-14.3); White Blood Cell 10.9 10^3/uL (4.4-10.8)
[2024-02-22 07:30] VITALS: BP 124/65; PULSE 99; RESP 18; TEMP 98.4; O2SAT 97
[2024-02-22 11:20] VITALS: BP 117/77; PULSE 98; RESP 16; TEMP 98.6; O2SAT 97
== END 2024-02-22 12:40 | disposition home or self-care (01) | DRG 540 ==
LOC: UNDOADMIN 04:08 → LDRP 04:08
PROVIDERS: ADMIT Obstetrics & Gynecology; ATTEND Obstetrics & Gynecology
PROC: 10D00Z1 Extraction of Products of Conception, Low, Open Approach (ICD-10-PCS; principal; 2024-02-20 07:13)
DX: O34.211 Maternal care for low transverse scar from previous cesarean delivery (principal); O24.420 Gestational diabetes mellitus in childbirth, diet controlled; Z37.0 Single live birth; Z3A.39 39 weeks gestation of pregnancy
CPT/HCPCS: 36415; 59025; 81002; 82948; 82962; 85025; 86803; 86850; 86900; 86901; 94760; 94762; 96360; 96361; 96365; G0378; J0131; J2590; J3490